=== PATIENT | male | born 1970 | race Caucasian/White ===

== ENCOUNTER 2022-07-23 10:47 | Emergency (ER) | payer BC ==
[2022-07-23 10:52] VITALS: RESP 18
--- NOTE | 2022-07-23 11:38 | XR ---
EXAMINATION TYPE: XR lumbar spine 2 or 3V DATE OF EXAM: 07/23/2022 11:21 AM INDICATION: Patient age:Male; 51 years old; Reason for study: Back pain and Left leg pain; COMPARISON: None TECHNIQUE: Frontal, lateral and coned in L5-S1 lateral views of the spine. FINDINGS: No evidence of any acute osseous pathology. No evidence of loss of vertebral body height i s seen. There is normal alignment of the lumbar vertebral bodies. Mild scattered disc space narrowing worse at L5-S1. Multilevel marginal osteophyte formation throughout the visualized spine. There is f acet joint arthropathy throughout the spine. Scattered at least mild neural foraminal stenosis. IMPRESSION: 1. No acute fracture. 2. Moderate multilevel disc degeneration.
--- NOTE | 2022-07-23 11:39 | XR ---
EXAMINATION TYPE: XR tibia fibula LT DATE OF EXAM: 07/23/2022 11:21 AM INDICATION: Patient age:Male; 51 years old; Reason for study: Left leg pain; COMPARISON: None TECHNIQUE: The left tibia/fibula was examined in AP and lateral projections. FINDINGS: No evidence of any acute osseous pathology, joint dislocation, or soft tissue swelling is n oted. IMPRESSION: No evidence of acute fracture.
--- NOTE | 2022-07-23 11:42 | XR ---
EXAMINATION TYPE: XR Hip Complete LT DATE OF EXAM: 07/23/2022 11:21 AM INDICATION: Patient age:Male; 51 years old; Reason for study: Left leg pain; COMPARISON: None. TECHNIQUE: The left hip was examined in the frontal and lateral projections FINDINGS: Deformity of the left hip with osteophyte formation acetabulum. No evidence for acute proce ss, joint dislocation or significant soft tissue swelling. Osteophyte formation of the superior aceta bulum of the hips. IMPRESSION: 1. No evidence for acute process. 2. Moderate left hip osteoarthrosis.
--- NOTE | 2022-07-23 12:01 | ED ---
Extremity Problem HPI - General Chief complaint: Extremity Injury, Lower Stated complaint: R/O DVT L Leg Time Seen by Provider: 07/23/22 10:57 Source: patient, RN notes reviewed Mode of arrival: ambulatory Limitations: no limitations - History of Present Illness Initial comments: This is a 51-year-old male who presents to the emergency department for left leg pain. States that this has been going on for over a week. He was initially worried that it was related to his sciatica, however he has been on a course of steroids and has seen his chiropractor with no relief. States that that treatment is usually effective for sciatica. Denies any loss of bowel/bladder control or saddle anesthesia. He is having pain in the calf and feels like there is a bulge behind the left thigh. He does work on a [employer], which he believes is making this worse. Patient states that he is concerned about a blood clot. He has no history of DVTs, however he states that his mother has had them. He has not had any redness or swelling to the leg. Also denies any chest pain or shortness of breath. Denies any fevers, chills, sore throat, cough, dyspnea, chest pain, palpitations, abdominal pain, nausea, vomiting, diarrhea, back pain, or headaches. MD Complaint: extremity pain Onset/Timin -: week(s) Location: left, lower extremity - Related Data Previous Rx's Medication Instructions Recorded Baclofen 5 mg PO Q8H PRN #20 tablet 07/23/22 Diclofenac Sodium [Voltaren] 75 mg PO BID PRN #20 tab 07/23/22 HYDROcodone/APAP 5-325MG [Marcola 1 tab PO Q6HR PRN 3 Days #12 tab 07/23/22 5-325] Allergies Allergy/AdvReac Type Severity Reaction Status Date / Time No Known Allergies Allergy Verified 07/23/22 10:52 Review of Systems ROS Statement: Those systems with pertinent positive or pertinent negative responses have been documented in the HPI. ROS Other: All systems not noted in ROS Statement are negative. Past Medical History Past Medical History: No Reported History History of Any Multi-Drug Resistant Organisms: None Reported Past Surgical History: Appendectomy Past Psychological History: No Psychological Hx Reported Smoking Status: Current every day smoker Past Alcohol Use History: Occasional Past Drug Use History: Marijuana General Exam Limitations: no limitations General appearance: alert, in no apparent distress Head exam: Present: atraumatic, normocephalic, normal inspection Respiratory exam: Present: normal lung sounds bilaterally. Absent: respiratory distress, wheezes, rales, rhonchi, stridor Cardiovascular Exam: Present: regular rate, normal rhythm, normal heart sounds. Absent: systolic murmur, diastolic murmur, rubs, gallop, clicks Extremities exam: Present: other (No swelling, erythema, or increased heat to the left lower extremity. There is calf tenderness. 2+ DP and TP pulses. Capillary refill less than 1 second.) Neurological exam: Present: alert, oriented X3, CN II-XII intact Psychiatric exam: Present: normal affect, normal mood Skin exam: Present: warm, dry, intact, normal color. Absent: rash Course Vital Signs 07/23/22 07/23/22 10:50 13:14 Temperature 98 F 97.9 F Pulse Rate 103 H 90 Respiratory 18 18 Rate Blood Pressure 156/90 147/76 O2 Sat by Pulse 99 99 Oximetry Medical Decision Making - Medical Decision Making This is a 51-year-old male who presents to the emergency department for left leg pain. Was pt. sent in by a medical professional or institution? @ -No Did you speak to anyone other than the patient for history? @ -No Did you review nursing and triage notes? @ -Yes, and I agree, it is accurate with regards to the patient's symptoms. Were old charts reviewed? @ -No Differential Diagnosis? @ -Differential Leg Pain: Leg fracture, leg sprain, DVT, PVD, arterial insufficiency, iliac artery aneurysm, cellulitis, compartment syndrome, tendinopathy, nerve entrapment, piriformis syndrome, osteoarthritis, rhabdomyolysis, myositis, cramping from an electrolyte imbalance, this is not meant to be an all inclusive list. X-rays interpreted by me (1pt min.)? @ -X-ray of the left tib-fib, left hip, and lumbar spine obtained. My interpr etation identifies no acute fractures. U/S interpreted by me (1pt. min.)? @ -Duplex ultrasound of the left lower extremity obtained. My interpretation identifies no evidence of a DVT. What testing was considered but not performed? (CT, X-rays, U/S, labs)? Why? @ -None What meds were considered but not given? Why? @ -None Did you discuss the management of the patient with other professionals? @ -No Did you reconcile home meds? @ -No Was smoking cessation discussed for >3mins.? @ -No Was critical care preformed (if so, how long)? @ -No Were there social determinants of health that impacted care today? How? (Homelessness, low income, unemployed, alcoholism, drug addiction, transportation, low edu. Level, literacy, decrease access to med. care, prison, rehab)? @ -No Was there de-escalation of care discussed even if they declined? (Discuss DNR or withdrawal of care, Hospice)? @ -No What co-morbidities impacted this encounter? (DM, HTN, Smoking, COPD, CAD, Cancer, CVA, Hep., AIDS, mental health diagnosis, sleep apnea, morbid obesity)? @ -None Was patient admitted / discharged? @ -Discharged. X-ray of the lumbar spine, left hip, and left tib-fib obtained revealing no acute findings. Duplex ultrasound of the left lower extremity obtained as well, also revealing no acute process. Advised that we do not have a clear cause for his symptoms at this time. This may still be related to sciatica that is just taking longer to resolve or another musculoskeletal process. His job is also likely contributing to the difficulty healing. Rx for baclofen, Marcola, and diclofenac and provided with dosing instructions reviewed. Patient is instructed to take the Diclofenac with Tylenol if needed and avoid any other jjqg-dym-tuxeuky anti-inflammatories such as ibuprofen with the Diclofenac. Also advised that the Marcola baclofen are sedating and he should take them at night until he knows how they affect him, and avoid driving or operating machinery when taking them. He will otherwise follow up with his primary care provider for reevaluation of ongoing symptoms. Undiagnosed new problem with uncertain prognosis? @ -None Drug Therapy requiring intensive monitoring for toxicity (Heparin, Nitro, Insulin, Cardizem)? @ -None Were any procedures done? @ -None Diagnosis/symptom? @ -Left leg pain Acute, or Chronic, or Acute on Chronic? @ -Acute Uncomplicated (without systemic symptoms) or Complicated (systemic symptoms)? @ -Uncomplicated Side effects of treatment? @ -None Exacerbation, Progression, or Severe Exacerbation] @ -Not applicable Poses a threat to life or bodily function? @ -No Return precautions reviewed in depth, the patient is instructed to return to the emergency department with any new, worsening, or concerning symptoms. Patient verbalized understanding. This case was discussed in detail with the attending ED physician, Dr. Huerta. Presentation, findings, and treatment plan discussed in detail as well. - Radiology Data Radiology results: report reviewed, image reviewed Disposition Clinical Impression: Left leg pain Disposition: HOME SELF-CARE Instructions (If sedation given, give patient instructions): Leg Pain (ED) Additional Instructions: Return to the emergency department with any new, worsening, or concerning symptoms. Take the diclofenac twice daily as needed for pain relief. Do not take other rych-fzf-iewnyqy anti-inflammatories such as ibuprofen with this. You may take one or the other and you can take it with Tylenol. You can take the baclofen as 1-2 tablets up to 3 times daily. Be aware that this may be sedating and you should avoid driving or operating machinery when taking this. Take the Marcola sparingly when your pain is the most severe and be aware that this is also sedating. Follow up with your primary care provider in 1-2 days. Prescriptions: Baclofen 5 mg PO Q8H PRN #20 tablet PRN Reason: Pain HYDROcodone/APAP 5-325MG [Marcola 5-325] 1 tab PO Q6HR PRN 3 Days #12 tab PRN Reason: Pain Diclofenac Sodium [Voltaren] 75 mg PO BID PRN #20 tab PRN Reason: Pain Is patient prescribed a controlled substance at d/c from ED?: Yes When asked, does pt state using other controlled substances?: No If prescribed controlled substance>3 days was MAPS reviewed?: Prescribed <3 Days Referrals: Billy Daniel MD [Primary Care Provider] - 1-2 days
--- NOTE | 2022-07-23 12:06 | US ---
EXAMINATION TYPE: US venous doppler duplex LE LT DATE OF EXAM: 07/23/2022 12:00 PM COMPARISON: NONE CLINICAL INDICATION: Male, 51 years old with history of Left leg pain; Left lateral leg pain, no h/o dvt SIDE PERFORMED: Left TECHNIQUE: The lower extremity deep venous system is examined utilizing real time linear array sonog champ with graded compression, doppler sonography and color-flow sonography. VESSELS IMAGED: Common Femoral Vein Deep Femoral Vein Greater Saphenous Vein * Femoral Vein Popliteal Vein Small Saphenous Vein * Proximal Calf Veins (* superficial vessels) Left Leg: Negative for DVT IMPRESSION: Grayscale, color doppler, spectral doppler imaging performed of the deep veins of the lo wer extremities. There is normal flow, compressibility, vascular waveforms.
[2022-07-23] MEDS ORDERED: HYDROcodone/APAP 5-325MG 1 EACH TAB PO STA (12:44)
[2022-07-23] MEDS ORDERED: KETOROLAC 15 MG/ML 1 ML VIAL IM STA (12:49)
[2022-07-23] MEDS ORDERED: IBUPROFEN 800 MG TAB PO STA (12:57)
[2022-07-23 13:16] VITALS: BP 147/76; PULSE 90; TEMP 97.9
== END 2022-07-23 13:17 | disposition home or self-care (01) ==
LOC: EC 10:47
DX: M79.605 Pain in left leg (principal); F17.200 Nicotine dependence, unspecified, uncomplicated; F12.90 Cannabis use, unspecified, uncomplicated
CPT/HCPCS: 72100; 73502; 99284

== ENCOUNTER → 2022-09-19 | Outpatient (CLI) | payer BC ==
--- NOTE | 2022-09-19 13:09 | XR ---
EXAMINATION TYPE: XR chest 2V DATE OF EXAM: 09/19/2022 1:02 PM COMPARISON: None TECHNIQUE: XR chest 2V Frontal and lateral views of the chest. CLINICAL INDICATION:Male, 51 years old with history of Z01.818 Pre Surgical; FINDINGS: Lungs/Pleura: There is no evidence of pleural effusion, focal consolidation, or pneumothorax. Pulmonary vascularity: Unremarkable. Heart/mediastinum: Cardiomediastinal silhouette is unremarkable. Musculoskeletal: No acute osseous pathology. Mild degenerative changes of the thoracic spine. IMPRESSION: No acute cardiopulmonary disease/process.
[2022-09-19 16:11] LABS: Appearance,Urine Clear (Clear); Bilirubin,Urine Negative (Negative); Blood,Urine Negative (Negative); Color,Urine Yellow (Yellow); Ketones,Urine Negative (Negative); Nitrite,Urine Negative (Negative); PH, Urine 5.5; Specific Gravity,Urine 1.023 (1.001-1.030); Urobilinogen,Urine 0.2 E.U./DL
== END | disposition home or self-care (01) ==
LOC: LABPAT 12:28
PROVIDERS: ATTEND Orthopaedic Surgery Orthopaedic Surgery of the Spine
DX: Z01.818 Encounter for other preprocedural examination (principal); M48.061 Spinal stenosis, lumbar region without neurogenic claudication; M54.16 Radiculopathy, lumbar region
CPT/HCPCS: 71046; 81001; 93005

== ENCOUNTER → 2022-09-26 | Outpatient (CLI) | payer BC | END | disposition home or self-care (01) | LOC: LABPAT 10:39 | PROVIDERS: ATTEND Orthopaedic Surgery Orthopaedic Surgery of the Spine | DX: Z53.9 Procedure and treatment not carried out, unspecified reason (principal) ==

== ENCOUNTER 2022-10-05 07:23 | Day surgery (SDC) | payer BC ==
[~2022-10-05 07:23] MED LIST: DEXAMETHASONE SOD PHOSPHATE 4 MG/ML 1 ML VIAL IV ONE; LIDOCAINE 1% (10MG/ML) FOR IV START INTRADERMA PRN; MIDAZOLAM 2 MG/2 ML VIAL IV PRN; ONDANSETRON 4 MG/2 ML VIAL IVP ONE; ceFAZolin 1,000 MG in SODIUM CHLORIDE 0.9% IRRIGATIO 1,000 ML IRRIGATION PRN
[2022-10-05] MEDS: LACTATED RINGERS 1,000 ML IV SCH ×2 (08:09→08:58)
[2022-10-05] MEDS ORDERED: PROPOFOL 10 MG/ML 20 ML VIAL IV ONE (08:53)
[2022-10-05] MEDS ORDERED: fentaNYL (PF) 50 MCG/ML 2 ML AMP ONE (08:53)
[2022-10-05] MEDS ORDERED: MIDAZOLAM 2 MG/2 ML VIAL ONE (08:53)
[2022-10-05] MEDS ORDERED: SUCCINYLCHOLINE CHLORIDE 200 MG/10 ML VIAL IV ONE (08:53)
[2022-10-05] MEDS ORDERED: LIDOCAINE 2% INJ 20 MG/ML (2 ML VIAL) ONE (08:53)
[2022-10-05] MEDS ORDERED: GLYCOPYRROLATE 0.2 MG/ML 2 ML VIAL ONE (08:53)
[2022-10-05] MEDS ORDERED: NEOSTIGMINE 1 MG/ML 10 ML VIAL ONE (08:53)
[2022-10-05] MEDS ORDERED: PHENYLEPHRINE-0.9% NACL SYG 1,000 MCG/10 ML SYRINGE ONE (08:53)
[2022-10-05] MEDS ORDERED: diphenhydrAMINE 50 MG/ML 1 ML VIAL ONE (08:53)
[2022-10-05] MEDS ORDERED: KETAMINE 10 MG/ML 20 ML VIAL ONE (08:53)
[2022-10-05] MEDS ORDERED: ROCURONIUM 10 MG/ML (5 ML VIAL) IV ONE (08:53)
[2022-10-05] MEDS ORDERED: LIDOCAINE 0.5%-EPI 1:200,000 50 ML VIAL SQ ONE ×2 (09:29)
[2022-10-05] MEDS ORDERED: THROMBIN (BOVINE) 5,000 UNIT VIAL MISCELLANE ONE (09:31)
[2022-10-05] MEDS ORDERED: GELATIN SPONGE,ABSORB (LARGE) 1 EACH SPONGE MISCELLANE ONE (09:32)
[2022-10-05] MEDS ORDERED: methylPREDNISolone ACETATE 40 MG/ML 1 ML VIAL MISCELLANE ONE ×2 (09:39→10:11)
[2022-10-05] MEDS ORDERED: LACTATED RINGERS 1,000 ML IV ONE (09:58)
--- NOTE | 2022-10-05 10:14 | FL ---
Intraoperative/procedural fluoroscopic services were provided. Total fluoroscopy time is 3 seconds wi th a total of 1 submitted images to PACS. Please see the operative/procedural note for further detail s. DAP: 1.2968 Gycm2
[2022-10-05] MEDS ORDERED: CYCLOBENZAPRINE 10 MG TAB PO PRN (10:26)
[2022-10-05] MEDS ORDERED: KETOROLAC 15 MG/ML 1 ML VIAL IVP PRN (10:26)
[2022-10-05] MEDS ORDERED: BENZOCAINE/MENTHOL LOZENG 1 EACH LOZENGE MUCOUS MEM PRN (10:26)
[2022-10-05] MEDS ORDERED: ONDANSETRON 4 MG/2 ML VIAL IVP PRN (10:26)
[2022-10-05] MEDS ORDERED: HYDROcodone/APAP 5-325MG 1 EACH TAB PO PRN (10:26)
[2022-10-05] MEDS ORDERED: HYDROmorphone 1 MG/ML 1 ML SYRINGE IVP PRN (10:26)
[2022-10-05] MEDS ORDERED: SODIUM CHLORIDE 0.9% 1,000 ML IV SCH (10:30)
--- NOTE | 2022-10-05 10:33 | P.OP ---
Date of Procedure: 10/05/22 Preoperative Diagnosis: Herniated nucleus pulposus L4 5, spinal stenosis L4 5, left lower extremity radiculopathy, degenerative disc disease, facet arthrosis, low back pain Postoperative Diagnosis: Same Anesthesia: GETA Pathology: none sent Condition: stable Disposition: PACU Description of Procedure: BRIEF OPERATIVE NOTE Preoperative Diagnosis:Herniated nucleus pulposus L4 5, spinal stenosis L4 5, left lower extremity radiculopathy, degenerative disc disease, facet arthrosis, low back pain Postoperative Diagnosis:Herniated nucleus pulposus L4 5, spinal stenosis L4 5, left lower extremity radiculopathy, degenerative disc disease, facet arthrosis, low back pain Procedure: Laminectomy and decompression bilateral L4 5 with left partial medial facetectomy and foraminotomy for decompression Discectomy for decompression L4 5 Surgeon: Dr. Meadows Melter Assistant: Macario Miller is present throughout the entire the case persistence during positioning, dissection, exposure, visualization, and all crucial elements of the case as well as closure. Anesthesia: General anesthesia Estimated blood loss: Approximately 50 mL Complications: None apparent Components implanted: None Disposition: To recovery room in good stable condition. OPERATIVE INDICATIONS The patient has been having issues in their lower back and lower extremities. He is having worsening symptoms at his back and his left lower extremity despite aggressive conservative care. He was found have significant stenosis at L4 5 with evidence of disc herniations L4 5 as well. These correlated well with his low back large kary-symptoms. He also has a number of degenerative changes had other areas of his lumbar spine which contributed to some of his pain but that seems the majority of his symptoms stem from worsening and herniation at L4 5. We discussed the possibility of treating all the areas of his lumbar spine and the potential of decompression and fusion versus possibly targeting the most substantial change and center of his pain at L4 5 level. We felt that treatment targeting the L4 5 level would give best chance of improvement with the least invasive approach. The patient has been through conservative treatment. We discussed various treatment options including surgery, and the patient wishes to proceed with surgery We discussed the risk, patient's alternatives and benefits of surgery including but not limited to, risk of bleeding risk of infection, risk of need for further surgery, risk of decreased, loss of motion, loss of function, nerve damage, paralysis, heart attack, blindness and . OPERATIVE SUMMARY After discussing all the risks, patient alternatives and benefits at length, the patient elected to proceed with surgical intervention, signed informed consent, and presented for their procedure. The patient was seen and examined in the preoperative holding area and the surgical site was marked. The patient was given antibiotics and brought to the operating room. The patient was sedated and intubated by anesthesia in standard fashion. The patient was positioned on to the operating room table in a prone position on the appropriate frame which was well-padded and well molded. We were careful to pad any bony prominences and pressure points. We were careful to maintain the patient's cervical spine and good neutral alignment and position throughout. The patient was prepped and draped in a normal standard fashion. An appropriate timeout and keystone protocol performed. We were able to proceed with the surge ry. Fluoroscopy was utilized to establish the appropriate level. The local wound area was infiltrated with local anesthetic. An incision was made at the midline longitudinally over the appropriate levels. Dissection was taken down subcutaneously to the level of the fascia which was split midline. Dissection was taken over the lamina. Intraoperative fluoroscopy was taken which showed a marker at the appropriate level at L4 5. With the appropriate level positively confirmed, we were able to proceed with laminectomy. The wound was copiously irrigated and suctioned dry as had been done periodically throughout the case. I performed a laminectomy with a combination of curettes and a high-speed bur and Kerrison rongeurs. I was able to undermine across the midline and do good central and bilateral decompression. A small medial facetectomy on the left was performed again further access. A partial foraminotomy was also performed. Portions of the ligamentum flavum were taken down to expose the dura and traversing nerve root. I was able to mobilize the traversing nerve root and gain access to the disc space. Note was made of obvious compression from the disc. Protecting the soft tissue structures, a small annulotomy was established. I was able to perform discectomy and remove any extruded disc fragments and any loose fragments from within the disc itself. There was a significant extruded fragment which was able to be removed providing further decompression. There is some severe disc desiccation noted. I tried to preserve the disc annulus that appeared stable. There were no further extruded fragments noted. There is no evidence of dural tear or leak. Good hemostasis maintained. The wound was copiously irrigated and suctioned dry. Good decompression and discectomy was noted. We were able to proceed with closure. The fascia was closed for a watertight closure. The subcuticular tissue was closed with absorbable suture. The wound was cleaned and dried and dressed with the appropriate dressing. The drapes were broken down. The patient was gently rolled back onto their hospital bed being careful to maintain their cervical spine and good neutral alignment and position. They were woken up by anesthesia, extubated, and brought to the recovery room in good stable condition. The patient will be admitted to the hospital for observation and for appropriate postoperative care, medical management and monitoring. We will continue to follow them closely about the postoperative course.
[2022-10-05 11:12] VITALS: RESP 16; TEMP 97
[2022-10-05] MEDS: HYDROmorphone 0.5 MG/0.5 ML SYRINGE IVP PRN ×2 (11:18→11:31)
[2022-10-05 12:06] VITALS: PULSE 88
[2022-10-05 12:37] VITALS: BP 144/92
[2022-10-05] MEDS ORDERED: IBUPROFEN 800 MG TAB PO SCH (21:00)
[2022-10-05] MEDS ORDERED: amLODIPine 5 MG TAB PO SCH (21:00)
== END 2022-10-05 13:23 | disposition home or self-care (01) ==
LOC: OR 07:23
PROVIDERS: ATTEND Orthopaedic Surgery Orthopaedic Surgery of the Spine
DX: M51.16 Intervertebral disc disorders with radiculopathy, lumbar region (principal); M48.062 Spinal stenosis, lumbar region with neurogenic claudication; I10 Essential (primary) hypertension; M25.78 Osteophyte, vertebrae; Z79.899 Other long term (current) drug therapy; Z90.49 Acquired absence of other specified parts of digestive tract; Z86.59 Personal history of other mental and behavioral disorders
CPT/HCPCS: 86900; 86901; 86850; 72100; 63047; J2250; J0330; J1200; J1030; J1100; J2710; J0690 ×2; J2405; J3010; J2370; J2704; J1170; J2001

== ENCOUNTER → 2023-10-11 | Outpatient (CLI) | payer OTHER ==
[~2023-10-11] MED LIST changes: -DEXAMETHASONE SOD PHOSPHATE 4 MG/ML 1 ML VIAL IV ONE; -LIDOCAINE 1% (10MG/ML) FOR IV START INTRADERMA PRN; -MIDAZOLAM 2 MG/2 ML VIAL IV PRN; -ONDANSETRON 4 MG/2 ML VIAL IVP ONE; +REGADENOSON 0.4 MG/5 ML SYRINGE IV ONE; -ceFAZolin 1,000 MG in SODIUM CHLORIDE 0.9% IRRIGATIO 1,000 ML IRRIGATION PRN
--- NOTE | 2023-10-11 13:11 | CA ---
Lexiscan Nuclear Stress Test Report Name: Hemant Galo Exam Date: 10/11/2023 10:22 Exam Location: [place] Stress Ht (in): 71 Wt (lb): 227 BSA: 2.23 Ordering Phys: Alex Yo MD Referring Phys: REINIER Technologist: TADEO Age: 53 Gender: M : 1970 Procedure CPT: Indications: I10 hypertension I20.89 OTHER FORMS OF ANGINA PECT ICD-10 Codes: Patient History: Hypertension, Chest pain and family history of heart disease. Medications: Meds past 24 hrs: Pretest Chest Pain: STRESS TEST Lexiscan Protocol Exercise Duration (min:sec): 02:[address] Depressions (mm): Angina Score: Topete Score: Resting HR (bpm): 61 Peak HR (bpm): 103 Resting BP (mmHg): 133 / 84 Peak BP (mmHg): 137 / 82 MPHR: 165 Target HR: 140 % MPHR: 62 METS: 1.0 Total Dose: Peak Dose: Atropine: Double Product: 04519 BP Response: Stress Termination: Infusion complete Stress Symptoms: Dyspnea Stress Summary: ECG ANALYSIS Resting ECG: Stress ECG: CONCLUSIONS At baseline EKG showed normal sinus rhythm, normal axis, no significant ST or T wave abnormalities. Patient recieved IV infusion of Lexiscan 0.4mg and at peak infusion EKG showed no change from baseline. Conclusions: 1. Normal EKG response to Lexiscan infusion 2. Nuclear imaging to be reported separately. Dr. Ankit Morgan DO (Electronically Signed) Final Date: 11 October 2023 13:09
--- NOTE | 2023-10-11 18:59 | NM ---
EXAMINATION TYPE: NM stress lexiscan cardiolite DATE OF EXAM: 10/11/2023 COMPARISON: NONE HISTORY: Hypertension, angina pectoris TECHNIQUE: After the intravenous administration of 10.24 mCi Tc 99m Sestamibi - Cardiolite resting S PECT images acquired 45 minutes post injection. At peak stress 24.5 mCi Tc 99m Sestamibi - Stress images obtained 40 minutes post injection The patient was stressed with 0.4mg Lexiscan. FINDINGS: Stress images there is some distal inferior lateral wall diminished radiotracer which is slightly imp roved on the resting images. Small stress-induced ischemic change may be present at this level. This is not readily apparent on the polar maps. Wall motion is normal Ejection fraction is calculated to be 64 %. IMPRESSION: 1. Small stress-induced ischemic change may be along the inferior lateral wall near the apex correlat e for EKG changes
== END | disposition home or self-care (01) ==
LOC: RADNMMAIN 07:56
PROVIDERS: ATTEND Family Medicine
DX: I10 Essential (primary) hypertension (principal); I20.89 Other forms of angina pectoris; I99.8 Other disorder of circulatory system
CPT/HCPCS: 93017; 78452; A9500

== ENCOUNTER 2023-11-10 05:33 | Day surgery (SDC) | payer OTHER ==
[2023-11-10] MEDS ORDERED: SODIUM CHLORIDE 0.9% 500 ML BAG ONE ×2 (07:00→08:30)
[2023-11-10] MEDS ORDERED: MIDAZOLAM 2 MG/2 ML VIAL ONE ×2 (07:26→07:59)
[2023-11-10] MEDS ORDERED: VERAPAMIL 2.5 MG/ML 2 ML AMP ONE (07:26)
[2023-11-10] MEDS ORDERED: LIDOCAINE 2% (PF) 20 MG/ML 5 ML VIAL ONE (07:27)
[2023-11-10] MEDS ORDERED: HEPARIN SODIUM 1,000 UN/ML (10ML VL) ONE (07:27)
[2023-11-10] MEDS ORDERED: fentaNYL (PF) 50 MCG/ML 2 ML AMP ONE (07:55)
[2023-11-10] MEDS: IOPAMIDOL-370 200ML BTL INJ ONE (07:57)
--- NOTE | 2023-12-08 10:25 | CC ---
CARDIAC CATHETERIZATION REPORT PT PERFORMING PHYSICIAN: Isauro Sethi. PROCEDURES PERFORMED: 1. Selective right and left coronary angiogram. 2. Left heart catheterization. 3. IFR of the RCA. 4. Ultrasound-guided access of the right radial artery. INDICATION: Symptomatic patient with abnormal stress test. COMPLICATIONS: None. LEVEL OF SEDATION: Moderate, with sedation length of 20 minutes. PROCEDURE DESCRIPTION: After obtaining an informed consent, the patient was brought to cardiac petroleum refinery laborer. The right radial artery was cannulated using micropuncture technique under ultrasound guidance, the micropuncture wire passed easily. Then, I placed a 6-Bengali 11 cm sheath in the right radial artery, and subsequently, 2 mg of verapamil IA given and 5000 units of heparin given as well. Selective right and left coronary angiogram performed using JR4 and JL3.5, and left heart catheterization performed using JR4 catheter. After zeroing the Doppler wire and equalizing between the Doppler wire and guiding catheter, the RCA was engaged and subsequently wired using the Doppler wire with IFR came into be at 0.92. SELECTIVE CORONARY ANGIOGRAM: 1. The RCA is a large-caliber vessel. It is a dominant vessel with intermediate to severe lesion involving the proximal to midportion. 2. The left main is normal. 3. The left circumflex is a large-caliber vessel and dominant vessel, appeared to be angiographically normal. 4. The LAD is a large-caliber vessel and appears to be angiographically normal. HEMODYNAMICS: The LVEDP was 12 mmHg with no significant gradient was identified across the aortic valve. CONCLUSION: Intermediate to severe lesion involving the proximal to mid RCA documented to be non flow-limiting by Doppler wire. POSTPROCEDURE MANAGEMENT: Aggressive cholesterol control, risk factor modification, and follow up with the patient. MMODL / IJN: [id number] /
== END 2023-11-10 11:20 | disposition home or self-care (01) ==
LOC: CATHCVL 05:33 → EDSTATUS 10:57 → CATHCVL 11:20
PROVIDERS: ATTEND Internal Medicine Interventional Cardiology
DX: R06.02 Shortness of breath
CPT/HCPCS: 93458; 93799

== ENCOUNTER 2024-06-18 07:55 | Day surgery (SDC) | payer OTHER ==
[2024-02-16 11:35] VITALS: BMI 31.4
[~2024-06-18 07:55] MED LIST changes: +LACTATED RINGERS 1,000 ML IV SCH; +LIDOCAINE 1% (10MG/ML) FOR IV START INTRADERMA PRN; -REGADENOSON 0.4 MG/5 ML SYRINGE IV ONE
[2024-06-18 08:23] VITALS: TEMP 98.1
[2024-06-18] MEDS: IV FLUID CONTINUATION 1,000 ML IV ONE (08:36)
[2024-06-18] MEDS ORDERED: PROPOFOL 10 MG/ML 20 ML VIAL IV ONE (08:59)
[2024-06-18] MEDS ORDERED: LIDOCAINE 1% INJ 10MG/ML (20 ML MDV) ONE (08:59)
--- NOTE | 2024-06-18 09:02 | P.GSHP ---
History of Present Illness H&P Date: 06/18/24 Chief Complaint: Colon cancer screening 53-year-old male here for colonoscopy. He has not had 1 previously. No bowel complaints. No family history of colon cancer. Past Medical History Past Medical History: Coronary Artery Disease (CAD), GERD/Reflux, Hyperlipidemia, Hypertension, Osteoarthritis (OA) Additional Past Medical History / Comment(s): BPH, History of Any Multi-Drug Resistant Organisms: None Reported Past Surgical History: Appendectomy, Back Surgery, Heart Catheterization, Orthopedic Surgery Additional Past Surgical History / Comment(s): Heniated disc repair, Right shoulder rotator cuff repair 2023 Past Anesthesia/Blood Transfusion Reactions: No Reported Reaction Smoking Status: Never smoker - Past Family History Father Family Medical History: Myocardial Infarction ([place]) Medications and Allergies Home Medications Medication Instructions Recorded Confirmed Type amLODIPine [Norvasc] 10 mg PO HS 09/29/22 06/18/24 History Aspirin [Adult Low Dose Aspirin EC] 81 mg PO HS 02/16/24 06/14/24 History Atorvastatin [Lipitor] 40 mg PO HS 02/16/24 06/18/24 History Famotidine [Pepcid] 40 mg PO HS 02/16/24 06/18/24 History Metoprolol Tartrate [Lopressor] 25 mg PO BID 02/16/24 06/18/24 History Spironolactone 50 mg PO DAILY 02/16/24 06/18/24 History Ibuprofen [Motrin] 800 mg PO DIRECTED 06/14/24 06/14/24 History Magnesium Oxide [Magnesium] 500 mg PO DAILY 06/14/24 06/14/24 History oxyBUTYnin chloride [Ditropan] 5 mg PO HS 06/14/24 06/18/24 History Allergies Allergy/AdvReac Type Severity Reaction Status Date / Time No Known Allergies Allergy Verified 06/18/24 08:17 Surgical - Exam Vital Signs Temp Pulse Resp BP Pulse Ox 98.1 F 67 16 139/82 97 06/18/24 08:22 06/18/24 08:22 06/18/24 08:22 06/18/24 08:22 06/18/24 08:22 Physical exam: General: Well-developed, well-nourished HEENT: Normocephalic, sclerae nonicteric Abdomen: Nontender, nondistended Extremities: No edema Neuro: Alert and oriented Assessment and Plan (1) Colon cancer screening Narrative/Plan: Will proceed with colonoscopy at this time. Current Visit: Yes Status: Acute Code(s): Z12.11 - ENCOUNTER FOR SCREENING FOR MALIGNANT NEOPLASM OF COLON SNOMED Code(s): 678091209
--- NOTE | 2024-06-18 09:22 | P.PCN ---
Date of Procedure: 06/18/24 Procedure(s) Performed: PREOPERATIVE DIAGNOSIS: Colon cancer screening POSTOPERATIVE DIAGNOSIS: Colon polyps, diverticulosis PROCEDURE: Colonoscopy with snare polypectomy ANESTHESIA: MAC SURGEON: Ryan Rosas M.D. SPECIMENS: Polyps ENDOSCOPIC PROCEDURE: The patient was placed on the endoscopy table in the left decubitus position. The Olympus colonoscope was inserted into the anus and passed under direct visualization to the base of the cecum. The appendiceal orifice was visualized. From that point the scope was slowly withdrawn inspecting all surfaces carefully. There were no neoplastic inflammatory or polypoid lesions throughout the cecum, ascending, and transverse colon. In the descending colon a small polyp was seen and removed using the snare with cautery technique. In the sigmoid colon an additional small polyp was seen and removed using the snare with cautery technique. In the rectum a final small polyp was removed in a similar fashion. The patient had a few inverted diverticula throughout the sigmoid colon that were obviously left alone. The patient had moderate sigmoid diverticulosis. Digital rectal examination was normal. The patient was taken to the recovery room in stable condition per anesthesia guidelines. RECOMMENDATIONS: Await biopsy results. Anticipate repeat colonoscopy 5 years.
[2024-06-18 09:55] VITALS: BP 123/78; PULSE 78; RESP 18
== END 2024-06-18 10:01 | disposition home or self-care (01) ==
LOC: ORWHC2ENDO 07:55
PROVIDERS: ATTEND Surgery
DX: Z12.11 Encounter for screening for malignant neoplasm of colon (principal); D12.4 Benign neoplasm of descending colon; D12.8 Benign neoplasm of rectum; K57.30 Diverticulosis of large intestine without perforation or abscess without bleeding; K21.9 Gastro-esophageal reflux disease without esophagitis; I25.10 Atherosclerotic heart disease of native coronary artery without angina pectoris; E78.5 Hyperlipidemia, unspecified; I10 Essential (primary) hypertension; N40.0 Benign prostatic hyperplasia without lower urinary tract symptoms; G47.33 Obstructive sleep apnea (adult) (pediatric); M19.90 Unspecified osteoarthritis, unspecified site; Z90.49 Acquired absence of other specified parts of digestive tract; Z82.49 Family history of ischemic heart disease and other diseases of the circulatory system; Z79.82 Long term (current) use of aspirin; Z79.02 Long term (current) use of antithrombotics/antiplatelets; Z79.1 Long term (current) use of non-steroidal anti-inflammatories (NSAID); Z79.899 Other long term (current) drug therapy
CPT/HCPCS: 88305; 45385; J2003; J2704

== ENCOUNTER → 2024-10-22 | Outpatient (CLI) | payer OTHER ==
--- NOTE | 2024-10-22 11:42 | MM ---
Reason for Exam: Clinical finding. Baseline mammogram. Indicated Problems: Pain of both sides (Focal) for 3 Month(s) : dr stated water pills were the cause stopped and started a new med today. Prior Study Comparison: Patient's first Mammogram. Tissue Density: The breasts are heterogeneously dense, which may obscure small masses. Findings: Analyzed By CAD. There is extensive subareolar density radiating both medially especially laterally. Asymmetric density inferior right MLO view does not persist on spot 3-D MLO or 3-D lateral views compatible with superimposition shadow. Given the patient's history, findings are compatible with extensive bilateral gynecomastia. No suspicious microcalcification or other discrete abnormality is seen. Overall Assessment: Benign, BI-RAD 2 Management: Clinical Management of both breasts. For the extensive bilateral gynecomastia. Per the patient's history, probably due to recent water pill medication started 3 months ago. Results were given to the patient verbally at the time of exam. [facility], , 10/22/2024 11:38 AM. Electronically signed and approved by: Dario Rodriguez M.D. Radiologist
== END | disposition home or self-care (01) ==
LOC: RADMAMWWP 10:45
PROVIDERS: ATTEND Family Medicine
DX: N64.4 Mastodynia (principal); R92.333 Mammographic heterogeneous density, bilateral breasts
CPT/HCPCS: 77062; 77066